=== PATIENT | female | born 1940 | race Caucasian/White ===

== ENCOUNTER → 2018-09-14 | Outpatient (CLI) | payer MEDICARE ==
[~2018-09-14] MED LIST: IOPAMIDOL 370 MG/ML 200 ML INFUS..BTL INJ ONE; SODIUM CHLORIDE 0.9% 250ML 250 ML ONE; SODIUM CHLORIDE 0.9% 50ML 0 ML ONE
[2018-09-14 10:43] LABS: BLOOD UREA NITROGEN 14 mg/dL (7-26); BUN/CREATININE RATIO 17 (6-25); CREATININE, SERUM 0.84 mg/dL (0.57-1.11); EST GLOMERULAR FILTRATION RATE > 60 ML/MIN (60-)
--- NOTE | 2018-09-14 12:33 | Diagnostic Imaging Report ---
EXAMINATION: CT of the abdomen and pelvis with and without contrast. TECHNIQUE: Spiral CT images of the abdomen and pelvis were performed from the lung bases to the lesser trochanters before and after the intravenous administration of 150 cc of Isovue-370. Scanning urographic phase and in the prone position was performed per CT urogram protocol. Coronal and sagittal reformatted images were obtained. COMPARISON: None. CLINICAL HISTORY:Hematuria DISCUSSION: ABDOMEN/PELVIS: LOWER THORAX:Trace subsegmental atelectasis in the dependent lingula and right middle lobe. HEPATOBILIARY: No focal hepatic lesion or intrahepatic biliary ductal dilatation. Subtle nodularity of the external hepatic contour may indicate cirrhosis. Status post cholecystectomy. SPLEEN: No splenomegaly. PANCREAS: The pancreas is largely atrophic. Dystrophic calcification in the pancreatic head. Subcentimeter cystic lesions in the pancreatic body and tail. ADRENALS: Bilateral adrenal calcifications. KIDNEYS/URETERS: Precontrast images show no renal, ureteral, or bladder calculi. Urographic phase images show no filling defects within the upper collecting systems, visualized segments of the ureters, or urinary bladder. Small segments of the ureters are not visualized due to peristalsis. Subcentimeter hypoattenuating lesions in both kidneys are too small to further characterize though likely to represent small cysts. PELVIC ORGANS/BLADDER: Urinary bladder is unremarkable. Uterus is not identified and has presumably been removed. No adnexal mass. PERITONEUM/RETROPERITONEUM: Trace left lower quadrant ascites seen on series 6 image 134. No pneumoperitoneum. LYMPH NODES: No pelvic sidewall, retroperitoneal, or mesenteric lymphadenopathy. VESSELS: There is atherosclerotic calcification of the abdominal aorta and major branch vessels, without aneurysmal dilatation. Portal vein, splenic vein, and central superior mesenteric vein are patent. GI TRACT: The large bowel shows no evidence of distention or wall thickening. Gas and fecal material are noted throughout. The appendix is not identified and has presumably been removed. BONES AND SOFT TISSUE: No osseous destructive lesions. Multilevel degenerative disc changes of the lumbar spine. No focal soft tissue abnormalities. No soft tissue abnormalities. IMPRESSION: No CT findings to explain the patient's reported history of hematuria. No renal calculi or urothelial lesions. Questionably nodular liver contour may indicate cirrhosis. Correlate for history of chronic hepatitis, chronic alcohol abuse, or other potential etiology. Atrophic pancreas with multiple subcentimeter cystic lesions. Differential diagnosis includes postinflammatory pseudocysts or side branch intraductal hepatobiliary mucinous neoplasm (IPMN). MRCP is suggested for further evaluation. Trace ascites, likely reactive. Atherosclerotic vascular disease. Signed by: Dr. Anshu Ware M.D. on 09/14/2018 12:30 PM
== END ==
LOC: CT 09:45
PROVIDERS: ATTEND Family Medicine
DX: R31.9 Hematuria, unspecified (principal)
CPT/HCPCS: 36415; 74178; 82565; 84520; J7050; Q9967

== ENCOUNTER → 2018-11-30 | Outpatient (CLI) | payer OTHER ==
[~2018-11-30] MED LIST changes: +GADOBENATE DIMEGLUMINE 1 ML IV ONE; -IOPAMIDOL 370 MG/ML 200 ML INFUS..BTL INJ ONE; -SODIUM CHLORIDE 0.9% 250ML 250 ML ONE; -SODIUM CHLORIDE 0.9% 50ML 0 ML ONE
[2018-11-30 10:10] LABS: BLOOD UREA NITROGEN 19 mg/dL (7-26); BUN/CREATININE RATIO 22 (6-25); CREATININE, SERUM 0.86 mg/dL (0.57-1.11); EST GLOMERULAR FILTRATION RATE > 60 ML/MIN (60-)
--- NOTE | 2018-11-30 14:32 | Diagnostic Imaging Report ---
History: ^HEMATURIA/SPC'D DZ OF PANCREAS Comparison: CT urogram 01/13/2018. Technique: Multiplanar, multisequence images of the abdomen were obtained before and after the administration of 15 cc of gadolinium. 3D volume rendered reformation images of the biliary tree were performed. Findings: Several pulse sequences are motion degraded. MRCP: No intrahepatic ductal dilatation. The common bile duct measures 5 mm in diameter and tapers as it approaches the ampulla. No intraluminal filling defect to suggest choledocholithiasis. Pancreas duct: Maximum diameter is 3.5 mm. Morphology is conventional. Gallbladder: Absent. Liver: Lobulated contours. The right lobe measures 16 cm in craniocaudal dimension. No evidence of soft tissue mass. Spleen: Measures 13 cm in length. No mass. Pancreas: Diffusely atrophic. Multiple parenchymal cysts: * Cyst in the uncinate measures 1.2 x 1.5 cm. * A cyst in the proximal body measures 10 mm. * Cyst in the proximal body measures 1.1 x 0.9 cm. * Cyst in the tail measures 1.2 x 0.7 cm No enhancing components of these cysts given the presence of motion degradation. No definitive communication to the main pancreas duct. No enhancing pancreas lesions. Kidneys: No hydronephrosis. Cysts in the left kidney measure 0.6 and 0.4 cm. No enhancing masses. Adrenal glands: Blooming artifact in the right adrenal gland corresponds to a calcification on CT. No associated soft tissue mass. Left adrenal gland is diffusely thickened. No evidence of soft tissue mass. Punctate calcifications in the left adrenal gland on CT are not visible on this MRI. Lymph nodes: No enlarged abdominal or retroperitoneal lymph nodes. Bowel: Small hiatal hernia. Visualized portions of the stomach, small bowel, and large bowel are normal in diameter with normal wall thickness. Peritoneum/Retroperitoneum: No free fluid or fluid collection. Vasculature: Aorta is normal in diameter. Portal vein is top normal in size. Tiny paraesophageal varices are suspected. Lung bases: Clear. Mild stable eventration of the right diaphragm. Bones: Normal marrow signal. No focal osseous lesions. IMPRESSION: 1. Compromised study due to motion degradation 2. Multiple pancreas cysts without definitive communication to the main pancreas duct. These could represent postinflammatory cysts or sidebranch IPMNs. Recommend annual surveillance with CT dedicated to the pancreas to overcome motion artifact. 3. Cirrhosis and top normal size of the portal vein and spleen. Tiny paraesophageal varices. No ascites. 4. Calcification in the right adrenal gland. 5. Cholecystectomy. No biliary ductal dilatation or evidence of choledocholithiasis. Thank you for your referral. Signed by: Dr. Derrick Estrada MD on 11/30/2018 1:01 PM
== END ==
LOC: MRI 09:09
PROVIDERS: ATTEND Internal Medicine
DX: R31.9 Hematuria, unspecified (principal); K86.89 Other specified diseases of pancreas
CPT/HCPCS: 36415; 74183; 82565; 84520

== ENCOUNTER → 2020-11-02 | Outpatient (CLI) | payer MEDICARE | LOC: US 13:52 | PROVIDERS: ATTEND Family Medicine | DX: N93.9 Abnormal uterine and vaginal bleeding, unspecified (principal) | CPT/HCPCS: 76856 ==

== ENCOUNTER 2020-12-31 15:12 | Inpatient (IN) | payer MEDICARE ==
[~2020-12-31] VITALS: Ht 152.4 cm; Wt 67.1 kg
[2020-12-31 16:25] LABS: BASOPHILS % 0.5 % (0.0-1.0); EOSINOPHILS % 0.5 % (0.0-6.0); LYMPHOCYTES # (AUTO) 0.8 (1.0-3.2); LYMPHOCYTES % 12.3 % (18.0-39.1); MEAN CORPUSCULAR HEMOGLOBIN 27.7 pg (28-32); MEAN CORPUSCULAR HGB CONC 29.1 g/dL (31-35); MEAN CORPUSCULAR VOLUME 95.4 fL (81-99); MONOCYTES # (AUTO) 0.6 (0.2-0.8); NEUTROPHILS # (AUTO) 5.1 (2.1-6.9); NEUTROPHILS % 77.1 % (38.7-80.0); PLATELET COUNT 220 x10e3/uL (140-360); RED BLOOD COUNT 1.73 x10e6/uL (3.6-5.1); RED CELL DISTRIBUTION WIDTH 14.7 % (11.7-14.4)
[2020-12-31 16:29] LABS: HEMATOCRIT 16.5 % (34.2-44.1)
[2020-12-31 16:30] LABS: HEMOGLOBIN 4.8 g/dL (12.0-16.0)
[2020-12-31] MEDS ORDERED: SODIUM CHLORIDE 0.9% 250ML 250 ML IV ONE (16:30)
[2020-12-31 16:42] LABS: ALBUMIN 3.5 g/dL (3.5-5.0); ALBUMIN/GLOBULIN RATIO 1.3 (0.8-2.0); ANION GAP 15.8 mmol/L (8-16); CALCIUM 9.5 mg/dL (8.4-10.2); CREATININE, SERUM 1.49 mg/dL (0.57-1.11)
[2020-12-31] MEDS ORDERED: LEVOTHYROXINE50 MCG PO (16:43)
[2020-12-31] MEDS ORDERED: HYGROTON25 MG PO (16:43)
[2020-12-31] MEDS ORDERED: JANUVIA100 MG PO (16:43)
[2020-12-31] MEDS ORDERED: LISINOPRIL2.5 MG PO (16:43)
[2020-12-31] MEDS ORDERED: FEROSUL325 MG PO (16:43)
[2020-12-31] MEDS ORDERED: ASPIRIN EC81 MG PO (16:43)
[2020-12-31] MEDS ORDERED: LOVASTATIN PO (16:43)
[2020-12-31 16:44] LABS: POTASSIUM 2.8 mmol/L (3.5-5.1)
[2020-12-31] MEDS ORDERED: POTASSIUM CHLORIDE 20MEQ/100ML 100 ML IV STA (16:44)
[2020-12-31] MEDS ORDERED: POTASSIUM CHLORIDE 20 MEQ TAB CR PO STA (16:44)
[2020-12-31 16:48] LABS: CREATINE KINASE MB 1.3 ng/mL (0-5.0)
[2020-12-31] MEDS ORDERED: SODIUM CHLORIDE 0.9% 250ML 250 ML ONE (17:32)
[2020-12-31 19:22] LABS: % IRON SATURATION 5 % (15-50); IRON 25 ug/dL (50-170); TOTAL IRON BINDING CAPACITY 455 ug/dL (261-478); TRANSFERRIN 325 mg/dL (180-382)
[2020-12-31] MEDS: IRON SUCROSE 100 MG in SODIUM CHLORIDE 0.9% 100 ML 100 ML IV SCH (19:48)
[2020-12-31] MEDS: INSULIN LISPRO 100 UNIT/1 ML 3ML VIAL SQ SCH (21:00)
[2020-12-31 21:22] VITALS: BP 129/48
[2020-12-31] MEDS: SIMVASTATIN 20 MG TAB PEG SCH (21:31)
[2020-12-31 22:35] VITALS: BP 129/48
[2020-12-31 22:37] VITALS: BP 129/48
[2021-01-01] VITALS (8 sets, daily range): BP systolic 112–153; BP diastolic 44–71
[2021-01-01] MEDS: LEVOTHYROXINE SODIUM 50 MCG TAB PO SCH (05:46)
[2021-01-01 06:08] LABS: BASOPHILS # (AUTO) 0.1 (0.0-0.1); BASOPHILS % 0.7 % (0.0-1.0); EOSINOPHILS # (AUTO) 0.1 (0.0-0.4); EOSINOPHILS % 0.9 % (0.0-6.0); HEMOGLOBIN 7.4 g/dL (12.0-16.0); LYMPHOCYTES # (AUTO) 1.1 (1.0-3.2); MEAN CORPUSCULAR HGB CONC 32.5 g/dL (31-35); MEAN CORPUSCULAR VOLUME 86.4 fL (81-99); MONOCYTES # (AUTO) 0.9 (0.2-0.8); MONOCYTES % 12.3 % (4.4-11.3); NEUTROPHILS # (AUTO) 5.3 (2.1-6.9); PLATELET COUNT 143 x10e3/uL (140-360); RED BLOOD COUNT 2.64 x10e6/uL (3.6-5.1); RED CELL DISTRIBUTION WIDTH 15.8 % (11.7-14.4)
[2021-01-01 06:18] LABS: HEMATOCRIT 22.8 % (34.2-44.1)
[2021-01-01 06:37] LABS: ALBUMIN 3.2 g/dL (3.5-5.0); ALBUMIN/GLOBULIN RATIO 1.5 (0.8-2.0); ANION GAP 13.5 mmol/L (8-16); CALCIUM 9.3 mg/dL (8.4-10.2); CREATININE, SERUM 1.28 mg/dL (0.57-1.11); POTASSIUM 3.5 mmol/L (3.5-5.1)
[2021-01-01 06:59] LABS: CREATINE KINASE MB 1.3 ng/mL (0-5.0)
[2021-01-01] MEDS: INSULIN LISPRO 100 UNIT/1 ML 3ML VIAL SQ SCH ×4 (07:30→21:45)
[2021-01-01] MEDS: SITAGLIPTIN 100 MG TAB PO SCH (08:36)
[2021-01-01 14:19] LABS: CREATINE KINASE MB 1.3 ng/mL (0-5.0)
[2021-01-01] MEDS: IRON SUCROSE 100 MG in SODIUM CHLORIDE 0.9% 100 ML 100 ML IV SCH (18:26)
[2021-01-01] MEDS ORDERED: SODIUM CHLORIDE 0.9% 50ML 50 ML ONE (18:32)
[2021-01-01] MEDS: SIMVASTATIN 20 MG TAB PEG SCH (20:59)
[2021-01-02] VITALS: BP 120/58
[2021-01-02 04:00] VITALS: BP 96/43
[2021-01-02] MEDS: LEVOTHYROXINE SODIUM 50 MCG TAB PO SCH (06:07)
[2021-01-02 07:23] LABS: HEMATOCRIT 21.9 % (34.2-44.1)
[2021-01-02 07:28] LABS: ANION GAP 11.4 mmol/L (8-16); CALCIUM 8.9 mg/dL (8.4-10.2); CREATININE, SERUM 1.27 mg/dL (0.57-1.11); POTASSIUM 3.4 mmol/L (3.5-5.1)
[2021-01-02] MEDS: INSULIN LISPRO 100 UNIT/1 ML 3ML VIAL SQ SCH ×2 (07:30→12:14)
[2021-01-02 08:06] VITALS: BP 117/57
[2021-01-02 08:46] VITALS: BP 117/57
[2021-01-02] MEDS: SITAGLIPTIN 100 MG TAB PO SCH (09:00)
[2021-01-02] MEDS ORDERED: SODIUM CHLORIDE 0.9% 250ML 250 ML ONE (09:44)
[2021-01-02] MEDS: IRON SUCROSE 100 MG in SODIUM CHLORIDE 0.9% 100 ML 100 ML IV SCH (10:30)
[2021-01-02 11:41] VITALS: BP 131/60
== END 2021-01-02 14:20 | disposition home health service (06) | DRG 687 ==
LOC: ER 15:34 → ERHOLD 16:48 → MED/SURG2 20:20
PROVIDERS: ADMIT Family Medicine; ATTEND Family Medicine
PROC: 30233N1 Transfusion of Nonautologous Red Blood Cells into Peripheral Vein, Percutaneous Approach (ICD-10-PCS; principal; 2020-12-31)
DX: C67.9 Malignant neoplasm of bladder, unspecified (principal); N17.9 Acute kidney failure, unspecified; E87.6 Hypokalemia; D63.0 Anemia in neoplastic disease; E11.649 Type 2 diabetes mellitus with hypoglycemia without coma; Z79.82 Long term (current) use of aspirin; Z20.822 Contact with and (suspected) exposure to COVID-19
CPT/HCPCS: 36415; 74176; 80048; 80053; 82550; 82553; 82948; 83540; 83880; 84466; 84484; 85014; 85018; 85025; 86850; 86900; 86920; 96361; 99251; 99284; J1756; J3480; J7050; P9016; U0002

== ENCOUNTER 2021-02-22 14:45 | Observation (INO) | payer MEDICARE ==
[~2021-02-22] VITALS: Ht 152.4 cm; Wt 67.1 kg
[~2021-02-22 14:45] MED LIST changes: +ASPIRIN EC81 MG PO; +FEROSUL325 MG PO; -GADOBENATE DIMEGLUMINE 1 ML IV ONE; +HYGROTON25 MG PO; +JANUVIA100 MG PO; +LEVOTHYROXINE50 MCG PO; +LISINOPRIL2.5 MG PO; +LOVASTATIN PO
[2021-02-22] MEDS ORDERED: SODIUM CHLORIDE 0.9% 250ML 250 ML IV ONE (15:15)
[2021-02-22] MEDS ORDERED: FUROSEMIDE INJ 10 MG/ML 2 ML VIAL IV PRN (15:15)
[2021-02-22] MEDS ORDERED: PANTOPRAZOLE 40 MG 10ML VIAL IV ONE (15:15)
[2021-02-22 16:46] LABS: BASOPHILS % 0.6 % (0.0-1.0); EOSINOPHILS # (AUTO) 0.1 (0.0-0.4); EOSINOPHILS % 1.1 % (0.0-6.0); LYMPHOCYTES # (AUTO) 0.6 (1.0-3.2); LYMPHOCYTES % 9.4 % (18.0-39.1); MEAN CORPUSCULAR HEMOGLOBIN 27.8 pg (28-32); MEAN CORPUSCULAR HGB CONC 28.1 g/dL (31-35); MONOCYTES # (AUTO) 0.6 (0.2-0.8); MONOCYTES % 9.9 % (4.4-11.3); NEUTROPHILS # (AUTO) 4.8 (2.1-6.9); NEUTROPHILS % 77.7 % (38.7-80.0); PLATELET COUNT 157 x10e3/uL (140-360); RED BLOOD COUNT 1.94 x10e6/uL (3.6-5.1); RED CELL DISTRIBUTION WIDTH 16.5 % (11.7-14.4)
[2021-02-22 16:49] LABS: HEMATOCRIT 19.2 % (34.2-44.1); HEMOGLOBIN 5.4 g/dL (12.0-16.0)
[2021-02-22 16:59] LABS: INR 1.05; PROTHROMBIN TIME 14.3 seconds (11.9-14.5)
[2021-02-22 17:01] LABS: ALANINE AMINOTRANSFERASE 17 IU/L (0-55); ALBUMIN 3.2 g/dL (3.5-5.0); ALBUMIN/GLOBULIN RATIO 1.2 (0.8-2.0); ALKALINE PHOSPHATASE 71 IU/L (40-150); ANION GAP 15.5 mmol/L (8-16); BLOOD UREA NITROGEN 18 mg/dL (7-26); BUN/CREATININE RATIO 15 (6-25); CALCIUM 9.5 mg/dL (8.4-10.2); CARBON DIOXIDE 16 mmol/L (22-29); CHLORIDE 113 mmol/L (98-107); CREATINE KINASE 36 IU/L (29-168); CREATININE, SERUM 1.19 mg/dL (0.57-1.11); EST GLOMERULAR FILTRATION RATE 44 ML/MIN (60-); GLUCOSE 164 mg/dL (74-118); MAGNESIUM 1.7 MG/DL (1.3-2.1); PARTIAL THROMBOPLASTIN TIME 22.8 seconds (23.8-35.5); POTASSIUM 3.5 mmol/L (3.5-5.1); SODIUM 141 mmol/L (136-145)
[2021-02-22] MEDS ORDERED: ONDANSETRON HCL INJ 2MG/ML 2ML 2 MG/ML VIAL IV PRN (17:45)
[2021-02-22] MEDS ORDERED: MORPHINE SULFATE INJ 2 MG/ML SYR IV PRN (17:45)
[2021-02-22] MEDS ORDERED: ACETAMINOPHEN 325 MG TAB PO PRN (17:45)
[2021-02-22] MEDS ORDERED: SODIUM CHLORIDE 0.9% 1000ML 1,000 ML IV SCH (17:45)
[2021-02-22 21:42] VITALS: BP 155/72
[2021-02-22] MEDS ORDERED: SODIUM CHLORIDE 0.9% 250ML 250 ML ONE (23:55)
[2021-02-23] VITALS (10 sets, daily range): BP systolic 146–169; BP diastolic 68–94
[2021-02-23] MEDS ORDERED: CALCIUM CARBON500 MG PO (01:07)
[2021-02-23] MEDS ORDERED: D3 + K2 DOTS 11 EACH PO (01:07)
[2021-02-23] MEDS ORDERED: CENTRUM ADULTS1 EACH PO (01:07)
[2021-02-23] MEDS: LEVOTHYROXINE SODIUM 50 MCG TAB PO SCH (07:30)
[2021-02-23] MEDS ORDERED: LISINOPRIL 2.5 MG TAB PO SCH (09:00)
[2021-02-23] MEDS ORDERED: SODIUM CHLORIDE 0.9% 250ML 250 ML ONE (10:22)
[2021-02-23 10:41] LABS: ALBUMIN 2.9 g/dL (3.5-5.0); ALBUMIN/GLOBULIN RATIO 1.2 (0.8-2.0); ANION GAP 12.9 mmol/L (8-16); CALCIUM 8.8 mg/dL (8.4-10.2); CREATININE, SERUM 1.1 mg/dL (0.57-1.11); POTASSIUM 3.9 mmol/L (3.5-5.1)
[2021-02-23 13:08] LABS: CLARITY,URINE TURBID (CLEAR); COLOR,URINE RED (YELLOW); LEUKOCYTE ESTERASE ,URINE TRACE (NEGATIVE); NITRITE,URINE NEGATIVE (NEGATIVE)
[2021-02-23 13:09] LABS: KETONES,URINE NEGATIVE (NEGATIVE); PROTEIN,URINE DIPSTICK 2+ (NEGATIVE); URINE UROBILINOGEN 0.2 mg/dL (0.2 - 1)
[2021-02-23 13:17] LABS: BACTERIA,URINE FEW /HPF; EPITHELIAL CELLS,URINE RARE /LPF; RBC,URINE >50 /HPF (0-5)
[2021-02-23 17:02] LABS: BASOPHILS % 0.7 % (0.0-1.0); EOSINOPHILS # (AUTO) 0.2 (0.0-0.4); EOSINOPHILS % 2.8 % (0.0-6.0); HEMATOCRIT 32.1 % (34.2-44.1); HEMOGLOBIN 9.8 g/dL (12.0-16.0); LYMPHOCYTES # (AUTO) 0.6 (1.0-3.2); LYMPHOCYTES % 9.7 % (18.0-39.1); MEAN CORPUSCULAR HEMOGLOBIN 26.3 pg (28-32); MEAN CORPUSCULAR HGB CONC 30.5 g/dL (31-35); MEAN CORPUSCULAR VOLUME 86.1 fL (81-99); MONOCYTES # (AUTO) 0.7 (0.2-0.8); MONOCYTES % 12.6 % (4.4-11.3); NEUTROPHILS # (AUTO) 4.3 (2.1-6.9); NEUTROPHILS % 73.5 % (38.7-80.0); PLATELET COUNT 136 x10e3/uL (140-360); RED BLOOD COUNT 3.73 x10e6/uL (3.6-5.1); RED CELL DISTRIBUTION WIDTH 21.1 % (11.7-14.4)
[2021-02-23] MEDS ORDERED: CLONIDINE HCL 0.1 MG TAB PO PRN (21:00)
[2021-02-24 01:40] VITALS: BP 180/90
[2021-02-24 05:20] VITALS: BP 125/71
[2021-02-24] MEDS: LEVOTHYROXINE SODIUM 50 MCG TAB PO SCH (09:00)
[2021-02-24] MEDS ORDERED: LISINOPRIL 2.5 MG TAB PO SCH (09:00)
[2021-02-24 09:02] VITALS: BP 152/68
[2021-02-24 09:33] VITALS: BP 152/68
[2021-02-24 09:44] VITALS: BP 152/68
[2021-02-24 12:56] VITALS: BP 153/88
== END 2021-02-24 18:00 | disposition home or self-care (01) ==
LOC: ER 14:54 → ERHOLD 17:40 → MED/SURG3 21:03
PROVIDERS: ADMIT Internal Medicine; ATTEND Internal Medicine
DX: D64.9 Anemia, unspecified (principal); N17.9 Acute kidney failure, unspecified; I50.9 Heart failure, unspecified; Z85.51 Personal history of malignant neoplasm of bladder; Z20.822 Contact with and (suspected) exposure to COVID-19; E03.9 Hypothyroidism, unspecified; E11.22 Type 2 diabetes mellitus with diabetic chronic kidney disease; I13.0 Hypertensive heart and chronic kidney disease with heart failure and stage 1 through stage 4 chronic kidney disease, or unspecified chronic kidney disease; N18.9 Chronic kidney disease, unspecified
CPT/HCPCS: 36415 ×3; 71045; 80053 ×2; 81001; 82550; 82553; 82948 ×3; 83735; 83880; 84484; 85025 ×2; 85610; 85730; 86850; 86900; 86920; 87086; 93005; 93306; 96361; 99285; G0378 ×3; J1940; J7030; J7050 ×2; P9016; U0002

== ENCOUNTER 2021-04-01 22:59 | Emergency (ER) | payer MEDICARE, OTHER ==
[~2021-04-01] VITALS: Ht 152.4 cm; Wt 67.1 kg
[~2021-04-01 22:59] MED LIST changes: +CALCIUM CARBON500 MG PO; +CENTRUM ADULTS1 EACH PO; +D3 + K2 DOTS 11 EACH PO
[2021-04-01] MEDS ORDERED: HYDROCODONE/APAP 7.5MG-325MG 1 EA TAB PO PRN (23:45)
[2021-04-02 02:23] VITALS: BP 116/55
== END 2021-04-02 03:26 | disposition home or self-care (01) ==
LOC: ER 23:02
DX: M25.552 Pain in left hip (principal); M25.551 Pain in right hip; M25.511 Pain in right shoulder; M85.88 Other specified disorders of bone density and structure, other site; W01.0XXA Fall on same level from slipping, tripping and stumbling without subsequent striking against object, initial encounter; Z91.81 History of falling; I10 Essential (primary) hypertension; E11.9 Type 2 diabetes mellitus without complications; Z86.73 Personal history of transient ischemic attack (TIA), and cerebral infarction without residual deficits; Z85.42 Personal history of malignant neoplasm of other parts of uterus
CPT/HCPCS: 72170; 99284

== ENCOUNTER 2021-04-09 08:26 | Emergency (ER) | payer MEDICARE ==
[~2021-04-09] VITALS: Ht 152.4 cm; Wt 67.1 kg
[2021-04-09] MEDS ORDERED: TRAMADOL HCL 50 MG TAB PO ONE (09:45)
[2021-04-09] MEDS ORDERED: ULTRAM50 MG PO (13:19)
== END 2021-04-09 14:20 | disposition home or self-care (01) ==
LOC: ER 09:08
DX: M25.552 Pain in left hip (principal); M25.551 Pain in right hip; R60.9 Edema, unspecified; I10 Essential (primary) hypertension; E11.9 Type 2 diabetes mellitus without complications; E78.5 Hyperlipidemia, unspecified; D64.9 Anemia, unspecified; M54.9 Dorsalgia, unspecified; G89.29 Other chronic pain; Z86.73 Personal history of transient ischemic attack (TIA), and cerebral infarction without residual deficits; Z85.42 Personal history of malignant neoplasm of other parts of uterus; Z85.51 Personal history of malignant neoplasm of bladder
CPT/HCPCS: 99283